=== PATIENT | male | born 2005 | race Caucasian/White ===

== ENCOUNTER 2024-08-05 03:13 | Emergency (ER) | payer SELFPAY ==
[2024-08-05 03:17] VITALS: BP 134/70; PULSE 73; TEMP 36.4; O2SAT 98; BMI 28.7
[2024-08-05 03:25] VITALS: O2SAT 97
--- NOTE | 2024-08-05 03:36 | ED_ITS ---
HPI - Skin/Abscess/Foreign Bdy General Chief complaint: Skin/Abscess/Foreign Body Stated complaint: swollen face Time Seen by Provider: 08/05/24 03:33 Source: patient Mode of arrival: walk-in Limitations: no limitations History of Present Illness HPI narrative: The patient is coming to the ER with a left-sided face swelling that he noted over the last 2 days, that the pain showed all of a sudden 2 days ago in the left side of his face with no trauma or any recent sickness symptoms The patient had no runny nose no cough no sneezing he also had no ear pain and no dental pain Mostly have the pain whenever he is touching that area Related Data Previous Rx's ?Medication ?Instructions ?Recorded amoxicillin 875 mg-potassium 1 tab PO BID #14 tabs 08/05/24 clavulanate 125 mg tablet ibuprofen 600 mg tablet 600 mg PO TID PRN pain #20 tabs 08/05/24 Allergies Allergy/AdvReac Type Severity Reaction Status Date / Time No Known Drug Allergies Allergy Verified 08/05/24 03:23 Review of Systems ROS Status of ROS 10 or more systems reviewed and unremark able except as noted in history and below PFSH PFSH Social History Little interest or pleasure in doing things: not at all Feeling down, depressed, or hopeless: not at all Exam Narrative Exam Narrative: Nurses notes and vital signs reviewed and patient is not hypoxic. General: Well-appearing and in no apparent distress. Skin: Warm, dry, no pallor noted. No rash. Head: Normocephalic, atraumatic. Neck: Supple, non-tender. Eye: Pupils are equal, round and EOMI. No scleral icterus. Ears, Nose, Mouth, and Throat: TM are clear, no nasal mucosal hypertrophy. Oral mucosa is moist, no posterior oropharynx erythema, uvula is mid-line, the patient have a swelling on the anterior of the left auricle in addition down to the angle of the mandible, there is left submandibular gland swelling as well Cardiovascular: Regular Rate and Rhythm without murmur, gallop or rub. Respiratory: No accessory muscle use or respiratory distress. Lungs are clear to auscultation, no wheezing, rales or rhonchi Chest Wall: no tenderness Back: No midline thoracic or lumbar vertebral tenderness. No CVA tenderness Musculoskeletal: normal ROM, no calf or popliteal tenderness, no lower extremity edema/swelling GI: Abdomen is soft, non-distended. Normal bowel sounds. No masses appreciated. No tenderness to palpation. No rebound, guarding, or rigidity noted. Neurological: A&O x4. No cranial nerve dysfunction observed. No truncal ataxia. Moves all extremities. Sensation intact. Psychiatric: Cooperative and interactive. Normal mood and affect. Constitutional Vital Signs, click to edit/add: Last Vital Signs Temp 97.5 F L 08/05/24 03:17 Pulse 73 08/05/24 03:17 Resp 18 08/05/24 03:17 BP 134/70 08/05/24 03:17 Pulse Ox 97 08/05/24 03:25 O2 Del Method Room Air 08/05/24 03:25 Course Vital Signs Vital signs: Vital Signs Temperature 97.5 F L 08/05/24 03:17 Pulse Rate 73 08/05/24 03:17 Respiratory Rate 18 08/05/24 03:17 Blood Pressure 134/70 08/05/24 03:17 Pulse Oximetry 98 08/05/24 03:17 Oxygen Delivery Method Room Air 08/05/24 03:17 Temperature 97.5 F L 08/05/24 03:17 Pulse Rate 73 08/05/24 03:17 Respiratory Rate 18 08/05/24 03:17 Blood Pressure 134/70 08/05/24 03:17 Pulse Oximetry 97 08/05/24 03:25 Oxygen Delivery Method Room Air 08/05/24 03:25 MDM - Skin/Abscess/Foreign Bdy MDM Narrative Medical decision making narrative: Right now the patient presentation is mostly secondary to possible parotitis although submandibular LN would be also the reason Although the patient does not have any dental infection signs with a dental exam showing with hygiene The patient left ear examination was benign as well Right now the patient was treated for possible parotitis with the ibuprofen high-dose in addition to Augmentin The patient does not have any difficulty swallowing or breathing right now but he was instructed in case of any increasing swelling or his symptoms he is to come back to the ER Otherwise the patient have to follow-up with his primary care doctor within few days The patient is to follow up with primary care physician in next 2-3 days or to return to the emergency department should any of the signs or symptoms worsen or new symptoms develop. The patient agrees with the following Diagnosis and Treatment plan and the patient will be discharged home. Discharge Plan Discharge Chief Complaint: Skin/Abscess/Foreign Body Clinical Impression: Acute parotitis Patient Disposition: Home, Self-Care Time of Disposition Decision: 03:34 Condition: Good Prescriptions / Home Meds: New amoxicillin-pot clavulanate 875-125 mg tablet 1 tab PO BID Qty: 14 0RF ibuprofen 600 mg tablet 600 mg PO TID PRN (Reason: pain) Qty: 20 0RF Print Language: Bolivian Instructions: Parotid Duct Obstruction (ED), Sialoadenitis (ED) Referrals: LAURY COWAN [Primary Care Provider] - 1 week
[2024-08-05] MEDS: KETOROLAC TROMETHAMINE 60 MG/2 ML VIAL IM (04:00)
[2024-08-05] MEDS: AMOXICILLIN/POT CLAV 875-125 MG TABLET 1 TAB PO (04:00)
== END 2024-08-05 04:06 | disposition home or self-care (01) ==
PROVIDERS: Emergency Provider Emergency Medicine; PCP Nurse Practitioner Family
DX: K11.21 Acute sialoadenitis (principal)
CPT/HCPCS: 96372; 99284; J1885

== ENCOUNTER 2024-10-29 15:25 | Emergency (ER) | payer OTHER, SELFPAY ==
[2024-10-29 15:28] VITALS: BP 147/84; PULSE 76; TEMP 36.6; O2SAT 96; BMI 28.7
--- NOTE | 2024-10-29 15:36 | ED.GENADUL1 ---
HPI HPI - General Adult General Chief complaint: Nausea/Vomiting/Diarrhea Stated complaint: MOUTH SORES, VOMITING Time Seen by Provider: 10/29/24 15:28 Source: patient Mode of arrival: walk-in Limitations: no limitations History of Present Illness HPI narrative: 19-year-old male presents for sores in his mouth as well as nausea vomiting and diarrhea. This has been present for 3 days. He states his girlfriend had a sore in her mouth a week or 2 ago. No cough or shortness of breath. Related Data Previous Rx's ?Medication ?Instructions ?Recorded ondansetron 4 mg disintegrating 4 mg PO Q6H PRN nausea and 10/29/24 tablet vomiting #20 tabs Allergies Allergy/AdvReac Type Severity Reaction Status Date / Time No Known Drug Allergies Allergy Verified 10/29/24 15:28 Opioid HPI Opioid Management Most Recent Opioid Data: No Data to Display Review of Systems ROS Narrative A ten point review of systems is negative except as noted above. PFSH PFSH Social History Little interest or pleasure in doing things: not at all Feeling down, depressed, or hopeless: not at all Exam Narrative Exam Narrative: Nurses note and vital signs reviewed and patient is not hypoxic. General: The patient appears well and in no apparent distress. Patient is resting comfortably on cart. Skin: Warm, dry, no pallor noted. There is no rash noted. Head: Normocephalic, atraumatic Eye: Normal conjunctiva, no drainage Ears, Nose, Mouth, and Throat: oral mucosa is moist. Nares patent. He has several sores on the lower lip and on the tongue. No white plaques are present. Cardiovascular: Regular Rate and Rhythm Respiratory: Patient is in no distress, no accessory muscle use, lungs are clear to auscultation, no wheezing, rales or rhonchi Back: non-tender GI: Soft and nontender Musculoskeletal: The patient has no evidence of calf tenderness, no pitting edema, symmetrical pulses noted bilaterally Neurological: A&O, normal speech Psychiatric: Cooperative Constitutional Vital Signs, click to edit/add: Last Vital Signs Temp 97.8 F 10/29/24 15:28 Pulse 76 10/29/24 15:28 Resp 20 10/29/24 15:28 BP 147/84 H 10/29/24 15:28 Pulse Ox 96 10/29/24 15:28 O2 Del Method Room Air 10/29/24 15:28 Course Vital Signs Vital signs: Vital Signs Temperature 97.8 F 10/29/24 15:28 Pulse Rate 76 10/29/24 15:28 Respiratory Rate 20 10/29/24 15:28 Blood Pressure 147/84 H 10/29/24 15:28 Pulse Oximetry 96 10/29/24 15:28 Oxygen Delivery Method Room Air 10/29/24 15:28 Temperature 97.8 F 10/29/24 15:28 Pulse Rate 76 10/29/24 15:28 Respiratory Rate 20 10/29/24 15:28 Blood Pressure 147/84 H 10/29/24 15:28 Pulse Oximetry 96 10/29/24 15:28 Oxygen Delivery Method Room Air 10/29/24 15:28 Medical Decision Making MDM Narrative Medical decision making narrative: Blood work is unremarkable. He was given IV fluids as well as a prescription for MDX solution and Zofran. BMBX solution was handwritten. Treatment diagnosis and follow-up were discussed with the patient and his mother. Differential Diagnosis Differential Diagnosis: Viral illness, dehydration Lab Data Lab results reviewed: Yes I reviewed the patient's lab results Labs: Lab Results 10/29/24 Range/Units 15:45 WBC 7.6 (4.0-11.0) 10^3/uL RBC 4.87 (4.70-6.10) 10^6/uL Hgb 14.5 (14.0-18.0) g/dL Hct 42.8 (42.0-54.0) % MCV 87.9 (80.0-94.0) fL MCH 29.8 (25.9-34.0) pg MCHC 33.9 (29.9-35.2) g/dL RDW 12.4 (11.0-15.0) % Plt Count 200 (150-450) 10^3/uL MPV 10.1 (9.5-13.5) fL Seg Neuts % (Manual) 53.0 (43.0-75.0) Lymphocytes % (Manual) 28.0 (20.5-60.0) % Monocytes % (Manual) 18.0 H (1.7-12.0) % Eosinophils % (Manual) 1.0 (0.9-7.0) % Basophils % (Manual) 0.0 L (0.2-2.0) % Neutrophils # (Manual) 4.02 (1.4-6.5) 10^3/uL Lymphocytes # (Manual) 2.12 (1.20-3.80) 10^3/uL Monocytes # (Manual) 1.36 H (0.30-0.80) 10^3/uL Eosinophils # (Manual) 0.07 (0.00-0.70) 10^3/uL Basophils # (Manual) 0.00 (0.00-0.10) 10^3/uL Sodium 138 (136-145) mmol/L Potassium 3.9 (3.5-5.1) mmol/L Chloride 100 (98-107) mmol/L Carbon Dioxide 27.0 (21.0-32.0) mmol/L Anion Gap 14.9 BUN 9.0 (7.0-18.0) mg/dL Creatinine 1.23 (0.70-1.30) mg/dL Est GFR ( Amer) >60 (>=60 mL/min/1.73m^2) Est GFR (Non-Af Amer) >60 (>=60 mL/min/1.73m^2) BUN/Creatinine Ratio 7.3 Glucose 93 (74-106) mg/dL Calcium 9.5 (8.5-10.1) mg/dL Discharge Plan Discharge Chief Complaint: Nausea/Vomiting/Diarrhea Clinical Impression: Viral stomatitis, Viral illness Patient Disposition: Home, Self-Care Time of Disposition Decision: 16:28 Condition: Good Mode of Transportation: Private Vehicle Prescriptions / Home Meds: New ondansetron 4 mg tablet,disintegrating 4 mg PO Q6H PRN (Reason: nausea and vomiting) Qty: 20 0RF Print Language: Ecuadorean Instructions: Viral Syndrome (ED), Oral Mucositis (ED) Referrals: LAURY COWAN [Primary Care Provider] - 1 week
[2024-10-29 15:56] LABS: Hematocrit 42.8 % (42.0-54.0); Hemoglobin 14.5 g/dL (14.0-18.0); Mean Corpuscular HGB Conc 33.9 g/dL (29.9-35.2); Mean Corpuscular Hemoglobin 29.8 pg (25.9-34.0); Mean Corpuscular Volume 87.9 fL (80.0-94.0); Mean Platelet Volume 10.1 fL (9.5-13.5); Platelet Count 200 10^3/uL (150-450); Red Blood Count 4.87 10^6/uL (4.70-6.10); Red Cell Distribution Width 12.4 % (11.0-15.0); White Blood Count 7.6 10^3/uL (4.0-11.0)
[2024-10-29 16:02] LABS: Anion Gap 14.9; BUN Creatinine Ratio 7.3; Calcium 9.5 mg/dL (8.5-10.1); Chloride 100 mmol/L (98-107); Estimated GFR (African America >60 (>=60 mL/min/1.73m^2); Estimated GFR (Non-African Ame >60 (>=60 mL/min/1.73m^2); Glucose 93 mg/dL (74-106); Potassium 3.9 mmol/L (3.5-5.1); Sodium 138 mmol/L (136-145)
[2024-10-29 16:15] LABS: Segmented Neut Absolute Manual 4.02 10^3/uL (1.4-6.5)
[2024-10-29 16:16] LABS: Eosinophils Absolute Manual 0.07 10^3/uL (0.00-0.70); Lymphocytes Absolute Manual 2.12 10^3/uL (1.20-3.80); Monocytes Absolute Manual 1.36 10^3/uL (0.30-0.80)
[2024-10-29] MEDS: 0.9 % SODIUM CHLORIDE 1,000 ML 1000 ML IV (16:18)
[2024-10-29] MEDS: ONDANSETRON PF 4 MG/2 ML VIAL IV (16:18)
== END 2024-10-29 17:20 | disposition home or self-care (01) ==
PROVIDERS: Emergency Provider Emergency Medicine; PCP Nurse Practitioner Family
DX: K12.1 Other forms of stomatitis (principal); B34.9 Viral infection, unspecified; R11.2 Nausea with vomiting, unspecified
CPT/HCPCS: 36415; 80048; 85007; 85027; 96361; 96374; 99285; J2405

== ENCOUNTER 2025-02-19 20:25 | Emergency (ER) | payer OTHER, SELFPAY ==
--- OUTSIDE RECORDS SUMMARY | 2024-10-30 05:00 | XMS_ITS ---
Author Organization The [facility] in [place] Address [address] [place] [address] Care Team Providers Care Reliability Manager Name Role Phone Cassandra Khan Primary Care Provider [phone] REASON FOR VISIT norovirus Encounters Encounter Location Date Provider Diagnosis [place] [address] [place] [address] 10/30/2024 Cassandra Khan Plan Of Treatment No Information Progress Notes * PAT Ernesto PonceDOB: 3 (19 yo M)Acc No.[id number]:10/30/2024 UNLOCKED PROGRESS NOTE Progress Note Patient: Ernesto EMERY Provider: Amaury Khan CNP (TTC) :2005 A ge:19 Y S ex:Male Date:10/30/2024 Address:[address] [place], [place] [id number] Subjective: * Chief Complaints: * 1 . Norovirus. * Medical History: Objective: * Vitals: Assessment: Plan: * Treatment: * * Electronic signature of Barbara Rodriguez NP, AIR QUALITY INSTRUMENT SPECIALIST.LINING [id number] on 02/19/2025 at 08:31 PM EDT Sign off status: Pending Visit Status: N /S N/C (No Show/No Charge) * Provider: Amaury Khan CNP (TTC) Date: 10/30/2024 Generated for Printi ng/Faxing/eTransmitting on: 02/19/2025 08:31 PM EDT
[2025-02-19 20:27] VITALS: BP 137/93; PULSE 78; TEMP 36.8; O2SAT 98; BMI 28.7
--- OUTSIDE RECORDS SUMMARY | 2025-02-19 20:31 | XMS_ITS | Clinical Summary ---
Author Organization [facility] Address [address] [place] [address] Care Team Providers Care Production Gear Cutter Name Role Phone Unavailable Primary Care Provider Unavailabl e Allergies No known active allergies Medications ibuprofen (MOTRIN) 600 mg tabletIndication s:Acute bilateral low back pain without sciatica Take 600 mg by mouth every 6 hours as needed. Active Active Problems Problem Noted Date Diagnosed Date Acute bilateral low back pain without sciatica 0 05/17/2017 Social History Tobacco Use Types Packs/Day Years Used Date Smoking Tobacco: Never Smokeless Tobacco: Never Area Deprivation Index Answer Date Erick rded National Score (1-100), lower number is lower ri sk Not on file 07/31/2020 State Score (1-10), lower number is lower risk N ot on file 07/31/2020 Data from: https://www.neighborhoodatlas.medicine.[facility]/. Last address used for calculation Not on file 07/31/2020 Sex and Gender Information Value Date Recorded Sex Assigned at Not on file Legal Sex Male 6:50 PM EDT Gender Identity Not on file Sexual Orientation Not on file Last Filed Vital Signs Vital Sign Reading Time Taken Comments Blood Pressure - - Pulse - - Temperature - - Respiratory Rate - - Oxygen Saturation - - Inhaled Oxygen Concentration - - Weight 90.7 kg (200 lb) 11/24/2018 9:17 AM EDT Height 177.8 cm (5' 10 ) 11/24/2018 9:17 AM EDT Body Mass Index 28.7 11/24/2018 9:17 AM EDT Plan of Treatment Health Maintenance Due Date Last Done Comments Peds To Adult Transition Initial Discussion 2015 Peds To Adult Transition Annual Assessment 2017 HPV Vaccine (1 - Male 3-dose series) 2018 Meningococcal B Vaccine (1 of 2 - Standard) 2019 Anxiety Screening 2021 Depression Screening 2021 HIV Screening 2021 Hepatitis C Screening 2021 DTaP,Tdap,Td Vaccine (1 - Tdap) 2022 Hepatitis B Vaccine (1 of 3 - 19+ 3-dose series) 07/24 Covid-19 Vaccine (1 - 2023- season) 2024 Influenza Vaccine (#1) 2025 Insurance
--- NOTE | 2025-02-19 20:32 | XR_ITS ---
The [address] [address] Patient Name: NINO STEWART MRN: [id number] date: 2005 Sex: M Assigned Patient Location: ER Current Patient Location: ED.MAIN Accession/Order Number: [id number] Exam Date: 02/19/2025 21:14 Report Date: 02/19/2025 21:15 At the request of: ESTEFANY WHITTEN NP Procedure: XR ankle LT min 3V 3 views left ankle plain film COMPARISON: None HISTORY: Left medial ankle pain. Injury ACUTE FINDINGS: None DEGENERATIVE CHANGE: Unremarkable SOFT TISSUE FINDINGS: Unremarkable JOINT EFFUSION: None POSTOP CHANGES: None BONE MINERALIZATION: Adequate XR/XR ankle LT min 3V IMPRESSION: No acute findings. Impression dictated by: Tim Marmolejo M.D. 02/19/2025 9:15 PM Dictation Location: [place] [address] Electronically authenticated by: [id number] Y Date: 02/19/2025 21:15
--- OUTSIDE RECORDS SUMMARY | 2025-02-19 20:32 | XMS_ITS | Patient Health Record ---
Author Organization The [facility] in [place] Address [address] [place] [address] Care Team Providers Care Triage Register Nurse Name Role Phone Cassandra Khan Primary Care Provider [phone] Results Component Value Reference Range Notes CBC AUTO DIFF Reviewed date:10/30/2024 09:15:45 AM Interpretation: Performing Lab: Notes/Report: [facility] , White Blood Count 7.6 4.0-11.0 10 3/uL Red Blood Count 4.87 4.70-6.10 10 6/uL Hemoglobin 14.5 14.0-18.0 g/dL Hematocrit 42.8 42.0-54.0 % Mean Corpuscular Volume 87.9 80.0-94.0 fL Mean Corpuscular Hemoglobin 29.8 25.9-34.0 pg Mean Corpuscular HGB Conc 33.9 29.9-35.2 g/dL Red Cell Distribution Width 12.4 11.0-15.0 % Platelet Count 200 150-450 10 3/uL Mean Platelet Volume 10.1 9.5-13.5 fL Performing Lab: see note ML - [facility] LB PROF CHEM 8 (BAS METB) Reviewed date:10/30/2024 09:15:45 AM Interpretation: Performing Lab: Notes/Report: [facility] , Sodium 138 136-145 mmol/L Potassium 3.9 3.5-5.1 mmol/L Chloride 100 98-107 mmol/L Carbon Dioxide 27.0 21.0-32.0 mmol/L Anion Gap 14.9 Glucose 93 74-106 mg/dL Blood Urea Nitrogen 9.0 7.0-18.0 mg/dL Creatinine 1.23 0.70-1.30 mg/dL Estimated GFR ( Fouzia >60 >=60 mL/mi n/1.73m 2 Estimated GFR (Non- Kimberlee >60 >=60 mL/mi n/1.73m 2 BUN Creatinine Ratio 7.3 Calcium 9.5 8.5-10.1 mg/dL Performing Lab: see note - [facility] LB Manual Differential Reviewed date:10/30/2024 09:15:45 AM Interpretation: Performing Lab: Notes/Report: [facility] , Segmented Neutrophils % Manual 53.0 43.0-75.0 Lymphocytes Percent Manual 28.0 20.5-60.0 % Monocytes Percent Manual 18.0 1.7-12.0 % Eosinophils Percent Manual 1.0 0.9-7.0 % Basophils Percent Manual 0.0 0.2-2.0 % Segmented Neut Absolute Manual 4.02 1.4-6.5 10 3/uL Lymphocytes Absolute Manual 2.12 1.20-3.80 10 3/uL Monocytes Absolute Manual 1.36 0.30-0.80 10 3/ uL Eosinophils Absolute Manual 0.07 0.00-0.70 10 3/uL Basophils Abs Manual 0.00 0.00-0.10 10 3/uL Performing Lab: see note - [facility] LB Reason For Referral No Information Plan Of Treatment No Information
--- NOTE | 2025-02-19 20:33 | ED.GENADUL1 ---
HPI HPI - General Adult General Chief complaint: Extremity Injury, Lower Stated complaint: LOWER EXTREMITY PAIN/INJURY Time Seen by Provider: 02/19/25 20:29 Source: patient Mode of arrival: Wheelchair Limitations: no limitations History of Present Illness HPI narrative: The patient is a 19-year-old male who presents to the emergency department today for evaluation concerns for left ankle pain. He endorses he was stepping off of his truck and subsequently hit the medial malleolar region of his left ankle. Reports since that he has had pain mostly with ambulation. Chills, weakness, loss of movement to the affected extremity. Did not take any analgesic medication prior to evaluation in the ER. Related Data Previous Rx's ?Medication ?Instructions ?Recorded ondansetron 4 mg disintegrating 4 mg PO Q6H PRN nausea and 10/29/24 tablet vomiting #20 tabs Allergies Allergy/AdvReac Type Severity Reaction Status Date / Time No Known Drug Allergies Allergy Verified 02/19/25 20:31 Opioid HPI Opioid Management Most Recent Opioid Data: Last Pain Scale 5 02/19/25, 20:43 Last ED Pain Assessment 02/19/25, 20:37 Last MAR Pain Assessment 02/19/25, 20:43 Review of Systems ROS Status of ROS 10 or more systems reviewed and unremarkable except as noted in history and below PFSH PFSH Social History Little interest or pleasure in doing things: not at all Feeling down, depressed, or hopeless: not at all Exam Narrative Exam Narrative: Constituational: Awake/ alert, no apparent distress, well hydrated HENMT: normocephalic, external ears normal, moist oral mucous membranes and oropharynx normal Eyes: EOMI and conjunctivae normal Neck: ROM intact Chest: inspection of chest normal Respiratory: Normal respiratory effort MSK: + mild discomfort over medial malleolar region of L ankle minimal surrounding edema, no ecchymosis, crepitus, deformity, R foot/lower leg stable, +NVI Skin: no rashes or petechiae Neuro: no focal deficits Psych: mental status grossly normal Constitutional Vital Signs, click to edit/add: Last Vital Signs Temp 98.2 F 02/19/25 20:27 Pulse 78 02/19/25 20:27 Resp 16 02/19/25 20:27 BP 137/93 H 02/19/25 20:27 Pulse Ox 98 02/19/25 20:27 O2 Del Method Room Air 02/19/25 20:27 Course Vital Signs Vital signs: Vital Signs Temperature 98.2 F 02/19/25 20:27 Pulse Rate 78 02/19/25 20:27 Respiratory Rate 16 02/19/25 20:27 Blood Pressure 137/93 H 02/19/25 20:27 Pulse Oximetry 98 02/19/25 20:27 Oxygen Delivery Method Room Air 02/19/25 20:27 Temperature 98.2 F 02/19/25 20:27 Pulse Rate 78 02/19/25 20:27 Respiratory Rate 16 02/19/25 20:27 Blood Pressure 137/93 H 02/19/25 20:27 Pulse Oximetry 98 02/19/25 20:27 Oxygen Delivery Method Room Air 02/19/25 20:27 Medical Decision Making MDM Narrative Medical decision making narrative: Patient is a well-appearing 19-year-old male who presented to the emergency department today for evaluation concerns for injury to the medial aspect of his left ankle. Initial examination and vital signs without any concerning neurovascular or motor findings on exam. Overall injury seem mild on exam. X-ray imaging without critical findings to the left ankle. Patient did receive supportive measures of ibuprofen and on reevaluation he reported some improvement in pain. Discussed this with the patient including recommendations for supportive care. Pablo wrap applied for stabilization of injury. Advised on follow-up with patient's primary care provider for reevaluation. Discussed signs and symptoms of any worsening condition and when to consider reevaluation by the emergency department. Patient verbalized an understanding of this and is agreeable with the plan to be discharged home. Medical Records Medical records reviewed: Yes I reviewed the patient's medical records Imaging Data XR Left ankle: Radiologist's impression: ITS Impressions Ankle X-Ray 02/19/25 20:32 IMPRESSION: No acute findings. Impression dictated by: Tim Marmolejo M.D. 02/19/2025 9:15 PM Dictation Location: [facility] Electronically authenticated by: [id number] Y Date: 02/19/2025 21:15 Discharge Plan Discharge Chief Complaint: Extremity Injury, Lower Clinical Impression: Ankle injury Patient Disposition: Home, Self-Care Condition: Good Mode of Transportation: Private Vehicle Prescriptions / Home Meds: No Action ondansetron 4 mg tablet,disintegrating 4 mg PO Q6H PRN (Reason: nausea and vomiting) Qty: 20 0RF Print Language: Beninese Instructions: P.R.I.C.E. Treatment (ED) Additional Instructions: Chest, ice, may take Tylenol and ibuprofen as needed for any pain. Wear Pablo wrap for support. Follow-up with your primary care provider for reevaluation as needed Referrals: LAURY COWAN [Primary Care Provider, Family Practice] - 1 week Discharge Date/Time: 02/19/25 22:09
--- OUTSIDE RECORDS SUMMARY | 2025-02-19 20:33 | XMS_ITS | CCD ---
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 distribution width (RBC) [Ratio] 12.4 % Normal 11.0-15.0 [facility] Comment on above: Performed By: #### C BC ####[facility] [address] [place], [place] [address]Dr. Cathrynyvetet Pillai Hematocrit (Bld) [Volume fraction] 40.8 % Critically low 42.0-54.0 [facility] Comment on above: Performed By: #### C BC ####[facility] [address] [place], [place] [address]Dr. Santino Pillai Hemoglobin (Bld) [Mass/Vol] 13.9 g/dL Critically low 14.0-18.0 [facility] Comment on above: Performed By: #### C BC ####[facility] [address] [place], [place] [address]Dr. Santino Pillai IG # 0.03 10e3/ul Normal 0.00-0.03 [facility] Comment on above: Performed By: #### C BC ####[facility] [address] [place], [place] [address]Dr. Cathrynyvette Pillai IG % 0.3 % Normal 0.0-0.5 [facility] Comment on above: Performed By: #### C BC ####[facility] [address] [place], [place] [address]DrCandie Pillai LYMPH # 2.6 103/ul Normal 1.2-3.8 [facility] Comment on above: Performed By: #### C BC ####[facility] [address] [id number]. Santino Pillai Lymphocytes/100 WBC (Bld) 26.9 % Normal 20.5-60.0 [facility] Comment on above: Performed By: #### C BC ####[facility] [address] [address] [id number]. Santino Pillai MANUAL DIFF REQ NO Normal [facility] Comment on above: Performed By: #### C BC ####[facility] [address] [address] [id number]. Santino Pillai MCH (RBC) [Entitic mass] 29.1 pg Normal 25.9-34.0 [facility] Comment on above: Performed By: #### C BC ####[facility] [address] [address] [id number]. Santino Pillai MCHC (RBC) [Mass/Vol] 34.1 g/dL Normal 29.9-35.2 [facility] Comment on above: Performed By: #### C BC ####[facility] [address] [id number]. Santino Pillai MCV (RBC) [Entitic vol] 85.4 fL Normal 80.0-94.0 [facility] Comment on above: Performed By: #### C BC ####[facility] [address] [id number]. Santnio Pillai MONO # 1.1 103/ul Critically high 0.3-0.8 [facility] Comment on above: Performed By: #### C BC ####[facility] [address] [id number] Pillai Monocytes/100 WBC (Bld) 11.7 % Normal 1.7-12.0 [facility] Comment on above: Performed By: #### C BC ####[facility] [address] [id number] Pillai NEUT # 5.7 103/ul Normal 1.4-6.5 [facility] Comment on above: Performed By: #### C BC ####[facility] [address] [place] [phone]. Santino Pillai Neutrophils/100 WBC (Bld) 59.5 % Normal 43.0-75.0 [facility] Comment on above: Performed By: #### C BC ####[facility] [address] [phone]. Santino Pillai Platelet mean volume (Bld) [Entitic vol] 10.2 fL Normal 9.5-13.5 [facility] Comment on above: Performed By: #### C BC ####[facility] [address] [phone]. Santino Pillai PLT 242 103/ul Normal 150-450 [facility] Comment on above: Performed By: #### C BC ####[facility] [address] [address]Dr. Santino Pillai RBC 4.78 106/ul Normal 4.70-6.10 [facility] Comment on above: Performed By: #### C BC ####[facility] [address] [place] [phone]. Santino Pillai WBC 9.6 103/ul Normal 4.0-11.0 [facility] Comment on above: Performed By: #### C BC ####[facility] [address] [place] [phone]. Santino Pillai CULTURE URINEon 03-25-2022 CULTURE URINE Culture Observations : NO GROWTH. Normal [facility] Comment on above: Performed By: #### U RCX #### [facility] [address] [address] [address] Santino Pillai ER URINE PROFILEon 2 Bilirubin Ql (U) Negative Normal NEGATIVE The [facility] Comment on above: Performed By: #### VIANCA SINGLETON #### [facility] [address] [address] [address] Santino Pillai Clarity (U) CLEAR Normal CLEAR [facility] Comment on above: Performed By: #### VIANCA SINGLETON #### [facility] [address] [place] [address] Dr. Santino Pillai Color (U) LT. YELLOW Normal YELLOW [facility] Comment on above: Performed By: #### Edie VENEGAS UMICRO #### [facility] [address] [place] [address] Dr. Santino MAZARIEGOS A micrscopic examination will be performed if indicated. Normal [facility] Comment on above: Performed By: #### Edie VENEGAS UMICRO #### [facility] [address] [place] [address] Dr. Santino Pillai Glucose Ql (U) Negative Normal NEGATIVE [facility] Comment on above: Performed By: #### Edie VENEGAS UMICRO #### [facility] [address] [place] [address] Dr. Santino Pillai Hemoglobin Ql (U) Negative Normal NEGATIVE The [facility] Comment on above: Performed By: #### SARANYA SINGLETONICRO #### [facility] [address] [place] [address] Dr. Santino Pillai Ketones Ql (U) Negative Normal NEGATIVE [facility] Comment on above: Performed By: #### SARANYA SINGLETONICRO #### [facility] [address] [place] [address] Dr. Santino Pillai LEUKOCYTES TRACE Abnormal NEGATIVE [facility] Comment on above: Performed By: #### Edie VENEGAS UMICRO #### [facility] [address] [place] [address] Dr. Santino Pillai Nitrite Ql (U) Negative Normal NEGATIVE [facility] Comment on above: Performed By: #### Edie VENEGAS UMICRO #### [facility] [address] [place] [address] Dr. Santino Pillai pH (U) 6.0 [pH] Normal 5-9 [facility] Comment on above: Performed By: #### Edie VENEGAS UMICRO #### [facility] [address] [place] [address] Dr. Santino Pillai SPEC GRAVITY 1.025 Normal 1.005-<=1.025 [facility] Comment on above: Performed By: #### BROOKLYN SINGLETONRO #### [facility] [address] [place] [address] Dr. Santino Pillai UA PROTEIN Negative Normal NEGATIVE/ TRACE [facility] Comment on above: Performed By: #### BROOKLYN SINGLETONRO #### [facility] [address] [place] [address] Dr. Santino Pillai UR MICRO IND INDICATED Normal [facility] Comment on above: Performed By: #### BROOKLYN SINGLETONRO #### [facility] [address] [place] [address] Dr. Santino Pillai Urobilinogen Qn (U) 0.2 {Tim'U}/dL Normal 0.2 - 1. 0 [facility] Comment on above: Performed By: #### BROOKLYN SINGLETONRO #### [facility] [address] [place] [address] Dr. Santino Pillai PROF 14(COMP METB)on 022 Albumin [Mass/Vol] 4.5 g/dL Normal 3.4-5.0 [facility] Comment on above: Performed By: #### C MP #### [facility] [address] [place] [address] Dr. Santino Pillai Albumin/Globulin [Mass ratio] 1.4 {ratio} Normal [facility] Comment on above: Performed By: #### C MP #### [facility] [address] [place] [address] Dr. Santino Pillai ALP [Catalytic activity/Vol] 46 U/L Normal 46-116 [facility] Comment on above: Performed By: #### C MP #### [facility] [address] [place] [address] Dr. Santino Pillai ALT [Catalytic activity/Vol] 21 U/L Normal 16-63 [facility] Comment on above: Performed By: #### C MP #### [facility] [address] [place] [address] Dr. Santino Pillai Anion gap [Moles/Vol] 16.4 mmol/L Normal [facility] Comment on above: Performed By: #### C MP #### [facility] [address] [address] [address] aSntino Pillai AST [Catalytic activity/Vol] 16 U/L Normal 15-37 [facility] Comment on above: Performed By: #### C MP #### [facility] [address] [address] [address] Santino Pillai Bilirubin [Mass/Vol] 0.6 mg/dL Normal 0.2-1.0 [facility] Comment on above: Performed By: #### C MP #### [facility] [address] [address] [address] Santino Pillai Calcium [Mass/Vol] 9.0 mg/dL Normal 8.5-10.1 [facility] Comment on above: Performed By: #### C MP #### [facility] [address] [address] [address] Santino Pillai Chloride [Moles/Vol] 100 mmol/L Normal 98-107 [facility] Comment on above: Performed By: #### C MP #### [facility] [address] [address] [address] Santino Pillai CO2 [Moles/Vol] 24.5 mmol/L Normal 21.0-32.0 [facility] Comment on above: Performed By: #### C MP #### [facility] [address] [address] [address] Santino Pillai Creatinine [Mass/Vol] 1.13 mg/dL Normal 0.70-1.30 [facility] Comment on above: Performed By: #### C MP #### [facility] [address] [address] [address] Santino Pillai EGFR-AF [place] >60 Normal >=60 [facility] Comment on above: Performed By: #### C MP #### [facility] [address] [address] [address] Santino Pillai EGFR-NON AF [place] >60 Normal >=60 [facility] Comment on above: Performed By: #### C MP #### [facility] [address] [address] [address] Santino Pillai Globulin (S) [Mass/Vol] 3.3 g/dL Normal [facility] Comment on above: Performed By: #### C MP #### [facility] [address] [address] [address] Santino Pillai Glucose [Mass/Vol] 111 mg/dL Critically high 74-106 [facility] Comment on above: Performed By: #### C MP #### [facility] [address] [address] [address] Santino Pillai Potassium [Moles/Vol] 3.9 mmol/L Normal 3.5-5.1 [facility] Comment on above: Performed By: #### C MP #### [facility] [address] [address] [address] Santino Pillai Protein [Mass/Vol] 7.8 g/dL Normal 6.4-8.2 [facility] Comment on above: Performed By: #### C MP #### [facility] [address] [address] [address] Santino Pillai Sodium [Moles/Vol] 137 mmol/L Normal 136-145 [facility] Comment on above: Performed By: #### C MP #### [facility] [address] [address] [address] Santino Pillai Urea nitrogen [Mass/Vol] 29.0 mg/dL Critically high 6.4-19.3 [facility] Comment on above: Performed By: #### C MP #### [facility] [address] [address] [address] Santino Pillai Urea nitrogen/Creatinine [Mass ratio] 25.7 mg/mg Normal [facility] Comment on above: Performed By: #### C MP #### [facility] [address] [address] [address] Santino Pillai URINE MICROSCOPIC ONLYon BACTERIA SMALL Abnormal NONE SEEN [facility] Comment on above: Performed By: #### VIANCA SINGLETON #### [facility] [address] [place] [address] Dr. Santino Pillai Bacteria identified Cx Nom (U) INDICATED Normal [facility] Comment on above: Performed By: #### Edie VENEGAS UMICRO #### [facility] [address] [place] [address] Dr. Santino Pillai CAST NONE SEEN Normal NONE SEEN [facility] Comment on above: Performed By: #### Edie VENEGAS UMICRO #### [facility] [address] [place] [address] Dr. Santino Pillai Crystals LM Nom (Urine sed) NONE SEEN Normal NONE SEEN [facility] Comment on above: Performed By: #### Edie VENEGAS UMICRO #### [facility] [address] [place] [address] Dr. Santino Pillai Epithelial cells LM Ql (Urine sed) NONE SEEN Normal NONE SEEN /RARE [facility] Comment on above: Performed By: #### Edie VENEGAS UMICRO #### [facility] [address] [place] [address] Dr. Santino Pillai MUCOUS NONE SEEN Normal NONE SEEN [facility] Comment on above: Performed By: #### Edie VENEGAS UMICRO #### [facility] [address] [place] [address] Dr. Santino Pillai RBC 10-20 Abnormal 0-2 [facility] Comment on above: Performed By: #### Edie VENEGAS UMICRO #### [facility] [address] [place] [address] Dr. Santino Pillai WBC 0-2 Abnormal NONE SEEN [facility] Comment on above: Performed By: #### Edie VENEGAS UMICRO #### [facility] [address] [place] [address] Dr. Santino Pillai Covid-19 PCR ([facility])on 02-19 SARS-CoV-2 (COVID-19) RNA YANNI+probe Ql (Unsp spec) Not detected Normal NOT DETECTED [facility] Comment on above: Result Comment: This test is not yet approved or cleared by the [place] FDA. When there are no FDA-approved or cleared tests available, and other criteria are met, FDA can make tests available under an emergency access mechanism called an Emergency Use Authorization (EUA). The EUA for this test is supported by the [place] of Health and Human Service's (HHS's) declaration that circumstances exist to justify the emergency use of in vitro diagnostics for the detection and/or diagnosis of the virus that causes COVID-19. This EUA will remain in effect (meaning this test can be used) for the duration of the COVID-19 declaration justifying emergency of IVDs, unless it is terminated or revoked by FDA (after which the test may no longer be used). When diagnostic testing is negative, the possibility of a false negative should be considered in the context of a patient's recent exposures and the presence of clinical signs and symptoms consistent with SARS-CoV-2. Performed By: #### [facility] #### [facility] [address] [place] [address] Dr. Santino Pillai XR RIBS LT PA [place] XR RIBS LT PA CH IMAGES REVIEWED: XR RIBS LT PA CH COMPARISON: Chest x-ray from yesterday. CLINICAL INDICATION: Left posterior lower rib pain and thoracic back pain after weight lifting. FINDINGS/IMPRESSION: 1. No acute displaced left rib fractures. No radiographic evidence of acute osseous abnormality. 2. No radiographic evidence of acute cardiopulmonary abnormality. Electronically authenticated by: RAJI BELLA Date: 2021-12-15 14:30 Normal [facility] XR CHEST 2 Von 12-14-2021 XR CHEST 2 V EXAMINATION: XR CHES T 2 V HISTORY: Dyspnea COMPARISON: No relevant comparison available. TECHNIQUE: PA and lateral FINDINGS: LUNGS: No significant pulmonary parenchymal abnormalities. VASCULATURE: No increased pulmonary vasculature. PLEURA: No pneumothorax, effusion, or pleural thickening. CARDIAC: No cardiomegaly or cardiac silhouette abnormality. MEDIASTINUM: No visible mass or adenopathy. BONES: No fracture or visible bone lesion. OTHER: Negative. IMPRESSION: No acute disease. Electronically authenticated by: YUNIOR PEREZ Date: 2021-12-14 17:56 Normal [facility] Cov[facility]-19 PCR [facility]on 08-22 SARS-CoV-2 (COVID-19) RNA YANNI+probe Ql (Unsp spec) Not detected Normal NOT DETECTED [facility] Comment on above: Result Comment: This test is not yet approved or cleared by the [place] FDA. When there are no FDA-approved or cleared tests available, and other criteria are met, FDA can make tests available under an emergency access mechanism called an Emergency Use Authorization (EUA). The EUA for this test is supported by the [place] of Health and Human Service's (HHS's) declaration that circumstances exist to justify the emergency use of in vitro diagnostics for the detection and/or diagnosis of the virus that causes COVID-19. This EUA will remain in effect (meaning this test can be used) for the duration of the COVID-19 declaration justifying emergency of IVDs, unless it is terminated or revoked by FDA (after which the test may no longer be used). When diagnostic testing is negative, the possibility of a false negative should be considered in the context of a patient's recent exposures and the presence of clinical signs and symptoms consistent with SARS-CoV-2. Performed By: #### C VDTB ####[facility] [address] [address]Dr. Santino Pillai CBC AUTO DIFFon 06-29-2021 BASO # 0.0 103/ul Normal 0.0-0.1 [facility] Comment on above: Performed By: #### C BC #### [facility] [address] [place] [address] Dr. Santino Pillai Basophils/100 WBC (Bld) 0.5 % Normal 0.2-2.0 [facility] Comment on above: Performed By: #### C BC #### [facility] [address] [place] [address] Dr. Santino Pillai EO # 0.3 103/ul Normal 0.0-0.7 [facility] Comment on above: Performed By: #### C BC #### [facility] [address] [place] [address] Dr. Santino Pillai Eosinophils/100 WBC (Bld) 4.6 % Normal 0.9-7.0 [facility] Comment on above: Performed By: #### C BC #### [facility] [address] [place] [address] Dr. Santino Pillai Erythrocyte distribution width (RBC) [Ratio] 12.3 % Normal 11.0-15.0 [facility] Comment on above: Performed By: #### C BC #### [facility] [address] [place] [address] Dr. Santino Pillai Hematocrit (Bld) [Volume fraction] 43.7 % Normal 42.0-54.0 [facility] Comment on above: Performed By: #### C BC #### [facility] [address] [place] [address] Dr. Santino Pillai Hemoglobin (Bld) [Mass/Vol] 14.6 g/dL Normal 14.0-18.0 [facility] Comment on above: Performed By: #### C BC #### [facility] [address] [place] [address] Dr. Santino Pillai IG # 0.01 10e3/ul Normal 0.00-0.03 [facility] Comment on above: Performed By: #### C BC #### [facility] [address] [place] [address] Dr. Santino Pillai IG % 0.2 % Normal 0.0-0.5 [facility] Comment on above: Performed By: #### C BC #### [facility] [address] [place] [address] Dr. Santino Pillai LYMPH # 1.8 103/ul Normal 1.2-3.8 [facility] Comment on above: Performed By: #### C BC #### [facility] [address] [place] [address] Dr. Santino Pillai Lymphocytes/100 WBC (Bld) 32.6 % Normal 20.5-60.0 [facility] Comment on above: Performed By: #### C BC #### [facility] [address] [place] [address] Dr. Santino Pillai MANUAL DIFF REQ NO Normal [facility] Comment on above: Performed By: #### C BC #### [facility] [address] [place] [address] Dr. Santino Pillai MCH (RBC) [Entitic mass] 29.7 pg Normal 25.9-34.0 [facility] Comment on above: Performed By: #### C BC #### [facility] [address] [place] [address] Dr. Santino Pillai MCHC (RBC) [Mass/Vol] 33.4 g/dL Normal 29.9-35.2 [facility] Comment on above: Performed By: #### C BC #### [facility] [address] [place] [address] Dr. Santino Pillai MCV (RBC) [Entitic vol] 89.0 fL Normal 76.3-90.1 [facility] Comment on above: Performed By: #### C BC #### [facility] [address] [place] [address] Dr. Santino Pillai MONO # 0.6 103/ul Normal 0.3-0.8 [facility] Comment on above: Performed By: #### C BC #### [facility] [address] [place] [address] Dr. Santino Pillai Monocytes/100 WBC (Bld) 10.7 % Normal 1.7-12.0 [facility] Comment on above: Performed By: #### C BC #### [facility] [address] [place] [address] Dr. Santino Pillai NEUT # 2.8 103/ul Normal 1.4-6.5 [facility] Comment on above: Performed By: #### C BC #### [facility] [address] [place] [address] Dr. Santino Pillai Neutrophils/100 WBC (Bld) 51.4 % Normal 43.0-75.0 [facility] Comment on above: Performed By: #### C BC #### [facility] [address] [place] [address] Dr. Santino Pillai Platelet mean volume (Bld) [Entitic vol] 10.4 fL Normal 9.5-13.5 [facility] Comment on above: Performed By: #### C BC #### [facility] [address] [place] [address] Dr. Santino Pillai PLT 226 103/ul Normal 150-450 [facility] Comment on above: Performed By: #### C BC #### [facility] [address] [address] [address] Santino Pillai RBC 4.91 106/ul Normal 3.30-5.40 [facility] Comment on above: Performed By: #### C BC #### [facility] [address] [address] [address] Santino Pillai WBC 5.5 103/ul Normal 4.0-11.0 [facility] Comment on above: Performed By: #### C BC #### [facility] [address] [address] [address] Santino Pillai CULTURE STOOLon 06-29-2021 CULTURE STOOL Culture Observations : NO GROWTH SALMONELLA, SHIGELLA, YERSINIA, CAMPY, E.COLI 0157, OR STAPH AT 72 HRS Normal [facility] Comment on above: Performed By: #### S TOOLCX ####[facility] [address] [address]Dr. Santino Pillai FREE THYROXINE INDEX T7on FTI 2.37 Normal [facility] Comment on above: Performed By: #### T SH, CMP, T7 #### [facility] [address] [place] [address] Dr. Santino Pillai T3U 32.0 % Normal 23.5-40.5 [facility] Comment on above: Performed By: #### T SH, CMP, T7 #### [facility] [address] [place] [address] Dr. Santino Pillai T4 [Mass/Vol] 7.40 ug/dL Normal 5.53-11.00 [facility] Comment on above: Performed By: #### T SH, CMP, T7 #### [facility] [address] [place] [address] Dr. Santino Pillai IRONon 06-29-2021 Iron [Mass/Vol] 74.0 ug/dL Normal 49.0-181.0 [facility] Comment on above: Performed By: #### I SUREKHA ####[facility] [address] [place], [place] [address]XiDr. Santino Pillai PROF 14(COMP METB)on 021 Albumin [Mass/Vol] 4.2 g/dL Normal 3.5-5.0 [facility] Comment on above: Performed By: #### T SH, CMP, T7 #### [facility] [address] [address] [address] Santino Pillai Albumin/Globulin [Mass ratio] 1.1 {ratio} Normal [facility] Comment on above: Performed By: #### T SH, CMP, T7 #### [facility] [address] [address] [address] Santino Pillai ALP [Catalytic activity/Vol] 56 U/L Critically low 65-260 [facility] Comment on above: Performed By: #### T SH, CMP, T7 #### [facility] [address] [address] [address] Santino Pillai ALT [Catalytic activity/Vol] 21 U/L Normal 21-72 [facility] Comment on above: Performed By: #### T SH, CMP, T7 #### [facility] [address] [address] [address] Santino Pillai Anion gap [Moles/Vol] 15.8 mmol/L Normal [facility] Comment on above: Performed By: #### T SH, CMP, T7 #### [facility] [address] [address] [address] Santino Pillai AST [Catalytic activity/Vol] 18 U/L Normal 17-59 [facility] Comment on above: Performed By: #### T SH, CMP, T7 #### [facility] [address] [address] [address] Santino Pillai Bilirubin [Mass/Vol] 0.4 mg/dL Normal 0.2-1.3 [facility] Comment on above: Performed By: #### T SH, CMP, T7 #### [facility] [address] [address] [address] Santino Pillai Calcium [Mass/Vol] 9.2 mg/dL Normal 8.4-10.2 [facility] Comment on above: Performed By: #### T SH, CMP, T7 #### [facility] [address] [place] [address] Dr. Santino Pillai Chloride [Moles/Vol] 103 mmol/L Normal 98-107 [facility] Comment on above: Performed By: #### T SH, CMP, T7 #### [facility] [address] [place] [address] Dr. Santino Pillai CO2 [Moles/Vol] 27.4 mmol/L Normal 22.0-30.0 [facility] Comment on above: Performed By: #### T SH, CMP, T7 #### [facility] [address] [place] [address] Dr. Santino Pillai Creatinine [Mass/Vol] 1.02 mg/dL Normal 0.66-1.25 [facility] Comment on above: Performed By: #### T SH, CMP, T7 #### [facility] [address] [place] [address] Dr. Santino Pillai Globulin (S) [Mass/Vol] 3.8 g/dL Normal [facility] Comment on above: Performed By: #### T SH, CMP, T7 #### [facility] [address] [place] [address] Dr. Santino Pillai Glucose [Mass/Vol] 106 mg/dL Normal 74-106 [facility] Comment on above: Performed By: #### T SH, CMP, T7 #### [facility] [address] [place] [address] Dr. Santino Pillai Potassium [Moles/Vol] 4.2 mmol/L Normal 3.4-5.0 [facility] Comment on above: Performed By: #### T SH, CMP, T7 #### [facility] [address] [place] [address] Dr. Santino Pillai Protein [Mass/Vol] 8.0 g/dL Normal 6.1-8.2 [facility] Comment on above: Performed By: #### T SH, CMP, T7 #### [facility] [address] [place] [address] Dr. Santino Pillai Sodium [Moles/Vol] 142 mmol/L Normal 137-145 [facility] Comment on above: Performed By: #### T JULISSA CMP, T7 #### [facility] [address] [place] [address] Dr. Santino Pillai Urea nitrogen [Mass/Vol] 13.0 mg/dL Normal 6.4-19.3 [facility] Comment on above: Performed By: #### T JULISSA CMP, T7 #### [facility] [address] [address] [address] Santino Pillai Urea nitrogen/Creatinine [Mass ratio] 12.7 mg/mg Normal [facility] Comment on above: Performed By: #### T VICKIE COSTA, T7 #### [facility] [address] [place] [address] Dr. Santino Pillai TSHon 06-29-2021 TSH 1.710 uIU/mL Normal 0.430-3.750 [facility] Comment on above: Performed By: #### T VICKIE COSTA, T7 #### [facility] [address] [place] [address] Dr. Santino Pillai TSH RANGE SEE BELOW Normal [facility] Comment on above: Result Comment: <0.3 4 UIU/ml HYPERTHYROID 0.34-5.60 UIU/ml EUTHYROID >5.60 UIU/ml HYPOTHYROID Performed By: #### T JULISSA CMP, T7 #### [facility] [address] [place] [address] Dr. Santino Pillai GI PANEL (PCR)on 06-22-2021 Adenovirus F 40/41 Not detected Normal NOT DETECTED [facility] Comment on above: Performed By: #### G IPANEL ####[facility] [address] [address]Dr. Santino Pillai Astrovirus Not detected Normal NOT DETECTED [facility] Comment on above: Performed By: #### G IPANEL ####[facility] [address] [address]DrCandie Pillai C. Diff toxin A/B Not detected Normal NOT DETECTED [facility] Comment on above: Performed By: #### G IPANEL ####[facility] [address] [address]Dr. Santino Pillai Campylobacter Not detected Normal NOT DETECTED The [facility] Comment on above: Performed By: #### G IPANEL ####[facility] [address] [address]Dr. Santino Pillai Cryptosporidium Not detected Normal NOT DETECTED [facility] Comment on above: Performed By: #### G IPANEL ####[facility] [address] [place], [place] [address]Dr. Santino Pillai Cyclos. Cayetanensis Not detected Normal NOT DETECTED [facility] Comment on above: Performed By: #### G IPANEL ####[facility] [address] [place], [place] [address]Dr. Santino Pillai E. Coli O157 Not Applicable Normal Not Applicable [facility] Comment on above: Performed By: #### G IPANEL ####[facility] [address] [place], [place] [address]Dr. Santino Pillai E. histolytica Not detected Normal NOT DETECTED [facility] Comment on above: Performed By: #### G IPANEL ####[facility] [address] [place], [place] [address]Dr. Santino Pillai EAEC Not detected Normal NOT DETECTED [facility] Comment on above: Performed By: #### G IPANEL ####[facility] [address] [place], [place] [address]Dr. Santino Pillai EIEC Not detected Normal NOT DETECTED [facility] Comment on above: Performed By: #### G IPANEL ####[facility] [address] [place], [place] [address]Dr. Santino Pillai EPEC Not detected Normal NOT DETECTED [facility] Comment on above: Performed By: #### G IPANEL ####[facility] [address] [place], [place] [address]Dr. Santino Pillai ETEC Not detected Normal NOT DETECTED [facility] Comment on above: Performed By: #### G IPANEL ####[facility] [address] [place] [address]Gu[address] Santino Pillai G. Lamblia Not detected Normal NOT DETECTED [facility] Comment on above: Performed By: #### G IPANEL ####[facility] [address] [address]Dr. Santino ANTONANEL CONTROLS PASSED Normal The [facility] Comment on above: Performed By: #### G IPANEL ####[facility] [address] [address]Dr. Santino ANTONNL JAMEE HEADER GI PANEL BACTERIA Normal T [facility] Comment on above: Performed By: #### G IPANEL ####[facility] [address] [place], [place] [address]Dr. Santino TEJADAHD ECOLI GI PANEL DIARRHEAGENIC E.COLI / SHIGELLA Normal [facility] Comment on above: Performed By: #### G IPANEL ####[facility] [address] [place], [place] [address]Dr. Santino TEJADAHD INFO SEE BELOW Normal [facility] Comment on above: Result Comment: EAEC - Enteroaggregative E. Coli EPEC- Enteropathogenic E. Coli ETEC- Enterotoxigenic E. Coli lt/st STEC- Shigella-like toxin-producing E. Coli stx1/stx2 EIEC- Shigella/Enteroinvasive E. Coli Performed By: #### G IPANEL ####[facility] [address] [place], [place] [address]Dr. Santino ANTONNLHD PARASITES GI PANEL PARASITES Normal [facility] Comment on above: Performed By: #### G IPANEL ####[facility] [address] [address]Dr. Santino ANTONNLHD VIRUS GI PANEL VIRUSES Normal [facility] Comment on above: Performed By: #### G IPANEL ####[facility] [address] [place], [place] [address]Dr. Santino Pillai Norovirus GI/GII Not detected Normal NOT DETECTED [facility] Comment on above: Performed By: #### G IPANEL ####[facility] [address] [place], [place] [id number]. Santino Pillai P. Shigelloides Not detected Normal NOT DETECTED [facility] Comment on above: Performed By: #### G IPANEL ####[facility] [address] [place], [place] [address]Dr. Santino Pillai Rotavirus A Not detected Normal NOT DETECTED The [facility] Comment on above: Performed By: #### G IPANEL ####[facility] [address] [place], [place] [address]Dr. Santino Pillai Salmonella Not detected Normal NOT DETECTED [facility] Comment on above: Performed By: #### G IPANEL ####[facility] [address] [place], [place] [address]Dr. Santino Pillai Sapovirus Not detected Normal NOT DETECTED [facility] Comment on above: Performed By: #### G IPANEL ####[facility] [address] [place], [place] [address]Dr. Santino Pillai STEC Not detected Normal NOT DETECTED [facility] Comment on above: Performed By: #### G IPANEL ####[facility] [address] [place], [place] [address]Dr. Santino Pillai Vibrio Not detected Normal NOT DETECTED [facility] Comment on above: Performed By: #### G IPANEL ####[facility] [address] [place], [place] [address]Dr. Santino Pillai Vibrio Cholera Not detected Normal NOT DETECTED [facility] Comment on above: Performed By: #### G IPANEL ####[facility] [address] [place], [place] [address]Dr. Santino Pillai Y. Enterocolitica Not detected Normal NOT DETECTED [facility] Comment on above: Performed By: #### G IPANEL ####[facility] [address] [place], [place] [address]Dr. Santino Pillai Basic Metabolic Panelon 10-20 Calcium [Mass/Vol] 9.4 mg/dL Normal 8.2-10.2 [facility] Comment on above: Performed By: #### C KMB, CBC, CK, BMP, TROP #### [facility] [address] [place] [address] [place] Chloride [Moles/Vol] 100 mmol/L Normal 95-114 [facility] Comment on above: Performed By: #### C KMB, CBC, CK, BMP, TROP #### [facility] [address] CO2 [Moles/Vol] 23.9 mmol/L Normal 22.0-30.0 [facility] Comment on above: Performed By: #### C KMB, CBC, CK, BMP, TROP #### [facility] [address] Creatinine [Mass/Vol] 0.95 mg/dL Normal 0.64-1.27 [facility] Comment on above: Performed By: #### C KMB, CBC, CK, BMP, TROP #### [facility] [address] [place] [address] [place] Creatinine Clr Calc Pharmacy 144.26 Normal [facility] Comment on above: Result Comment: PERF ORMED BY: [place] [address] PATHOLOGIST [employer]PER[employer] KRISTY GARCÍA M.D. Performed By: #### C KMB, CBC, CK, BMP, TROP #### [address] Glucose [Mass/Vol] 103 mg/dL High 70-100 [facility] Comment on above: Result Comment: [facility] Glucose Reference Range is dependent on time and content of last meal. Glucose of more than 200 mg/dL in a nonstressed, ambulatory subject supports the diagnosis of Diabetes Mellitus. ADA recommended reference range Performed By: #### C KMB, CBC, CK, BMP, TROP #### [facility] [address] Potassium [Moles/Vol] 4.1 mmol/L Normal 3.5-5.1 [facility] Comment on above: Performed By: #### C KMB, CBC, CK, BMP, TROP #### [facility] [address] [place] [address] [place] Sodium [Moles/Vol] 133 mmol/L Low 138-145 [facility] Comment on above: Performed By: #### C KMB, CBC, CK, BMP, TROP #### [address] Urea nitrogen [Mass/Vol] 11 mg/dL Normal 9-23 [facility] Comment on above: Performed By: #### C KMB, CBC, CK, BMP, TROP #### [address] Complete Blood Count Auto Di ffon 11-03-2020 Basophils (Bld) [#/Vol] 0.0 10*3/uL Normal 0.0-0.1 [facility] Comment on above: Result Comment: PERF ORMED BY: [place] [address] PATHOLOGIST [employer] SUPERVISOR KRISTY GARCÍA M.D. Performed By: #### C KMB, CBC, CK, BMP, TROP #### [address] Basophils/100 WBC (Bld) 0.5 % Normal . [facility] Comment on above: Performed By: #### C KMB, CBC, CK, BMP, TROP #### [address] Eosinophils (Bld) [#/Vol] 0.1 10*3/uL Normal 0.0-0.7 [facility] Comment on above: Performed By: #### C KMB, CBC, CK, BMP, TROP #### [address] Eosinophils/100 WBC (Bld) 1.8 % Normal . [facility] Comment on above: Performed By: #### C KMB, CBC, CK, BMP, TROP #### [address] Erythrocyte distribution width (RBC) [Ratio] 13.4 % Normal 12.0-14.8 [facility] Comment on above: Performed By: #### C KMB, CBC, CK, BMP, TROP #### [address] Hematocrit (Bld) [Volume fraction] 42.6 % Normal 37.0-49.0 [facility] Comment on above: Performed By: #### C KMB, CBC, CK, BMP, TROP #### [address] Hemoglobin (Bld) [Mass/Vol] 14.4 g/dL Normal 13.0-16.0 [facility] Comment on above: Performed By: #### C KMB, CBC, CK, BMP, TROP #### [address] Lymphocytes (Bld) [#/Vol] 1.3 10*3/uL Normal 1.20-4.8 [facility] Comment on above: Performed By: #### C KMB, CBC, CK, BMP, TROP #### [address] Lymphocytes/100 WBC (Bld) 23.5 % Normal . [facility] Comment on above: Performed By: #### C KMB, CBC, CK, BMP, TROP #### [address] MCH (RBC) [Entitic mass] 30.2 pg Normal 25.0-35.0 [facility] Comment on above: Performed By: #### C KMB, CBC, CK, BMP, TROP #### [address] MCV (RBC) [Entitic vol] 89.1 fL Normal 78-98 [facility] Comment on above: Performed By: #### C KMB, CBC, CK, BMP, TROP #### [address] Mean Corpuscular HGB Conc 33.9 g/dL Normal 31.0-37.0 [facility] Comment on above: Performed By: #### C KMB, CBC, CK, BMP, TROP #### [place] [id number] [place] Monocytes (Bld) [#/Vol] 0.6 10*3/uL Normal 0.1-1.00 [facility] Comment on above: Performed By: #### C KMB, CBC, CK, BMP, TROP #### [facility] [address] [place] [address] Monocytes/100 WBC (Bld) 11.0 % Normal . [facility] Comment on above: Performed By: #### C KMB, CBC, CK, BMP, TROP #### [address] Neutrophils (Bld) [#/Vol] 3.4 10*3/uL Normal 1.2-7.7 [facility] Comment on above: Performed By: #### C KMB, CBC, CK, BMP, TROP #### [address] Neutrophils/100 WBC (Bld) 63.2 % Normal . [facility] Comment on above: Performed By: #### C KMB, CBC, CK, BMP, TROP #### [place] [address] [place] Nucleated RBC/100 WBC (Bld) [Ratio] 0.1 % Normal 0-0.5 [facility] Comment on above: Performed By: #### C KMB, CBC, CK, BMP, TROP #### [address] Platelet mean volume (Bld) [Entitic vol] 9.3 fL Normal 6.6-10.1 [facility] Comment on above: Performed By: #### C KMB, CBC, CK, BMP, TROP #### [place] [address] [place] Platelets (Bld) [#/Vol] 206 10*3/uL Normal 150-450 [facility] Comment on above: Performed By: #### C KMB, CBC, CK, BMP, TROP #### [place] [address] [place] RBC (Bld) [#/Vol] 4.78 10*6/uL Normal 4.50-5.30 [facility] Comment on above: Performed By: #### C KMB, CBC, CK, BMP, TROP #### [address] WBC (Bld) [#/Vol] 5.4 10*3/uL Normal 4.5-13.5 [facility] Comment on above: Performed By: #### C KMB, CBC, CK, BMP, TROP #### [address] Creatine Kinaseon 11-03-2020 CK [Catalytic activity/Vol] 128 U/L Normal 22-269 [facility] Comment on above: Performed By: #### C KMB, CBC, CK, BMP, TROP #### [address] Creatinine Kinase MBon 11-03 CK.MB [Mass/Vol] 1.2 ng/mL Normal 0.6-6.3 [facility] Comment on above: Performed By: #### C KMB, CBC, CK, BMP, TROP #### [address] CKMB Relative Index 0.9 Normal 0.00-2.50 [facility] Comment on above: Performed By: #### C KMB, CBC, CK, BMP, TROP #### [address] ECG 12 lead ECGon 11-03-2020 ECG 12 lead ECG [facility] [place] [address] Electrocardiograph Report Signed Patient: Ernesto Price MR#: [id number] [birth year] : 2005 Acct:[id number] Age/Sex: 15 / M ADM Date: 11/03/20 Loc: ER Room: Type: [facility] ER Attending Dr: Ordering Provider: Jonathan Mercedes APRN Date of Service: 11/03/20 ECG/ECG 12 lead ECG: Chest Pain Copies to: Test Reason : Blood Pressure : 174/070 mmHG Vent. Rate : 079 BPM Atrial Rate : 079 BPM P-R Int : 156 ms QRS Dur : 090 ms QT Int : 360 ms P-R-T Axes : 025 071 016 degrees QTc Int : 412 ms Normal sinus rhythm Normal ECG No previous ECGs available Confirmed by NARCISO MEREDITH MD ([id number]) on 11/03/2020 3:25:18 PM Referred By: Electronically Signed By:NARCISO MEREDITH MD Transcribed By: MUS Dictated By: Narciso Meredith MD 11/03/20 1115 Signed By: 11/03/20 1525 Normal [facility] Troponin I(TnI)on 11-03-2020 Troponin I.cardiac [Mass/Vol] ng/mL Normal 0-0.02 [facility] Comment on above: Result Comment: JAY CT Cut off value > or equal to 0.03 ng/mL in conjunction with clinical conditions of myocardial infarction. (www.escardio.org/guidelines) PERFORMED BY: [place] [address] PATHOLOGIST [employer] SUPERVISOR KRISTY GARCÍA M.D. Performed By: #### C KMB, CBC, CK, BMP, TROP #### [address] XR chest 1V portableon 11-03 XR chest 1V portable [facility] [place] [address] [place] [address] XRay Report Signed Patient: Ernesto Price MR#: [id number] 11 : 2005 Acct:[id number] Age/Sex: 15 / M ADM Date: 11/03/20 Loc: ER Room: Type: [facility] ER Attending Dr: Ordering Provider: Jonathan Mercedes APRN Date of Service: 11/03/20 XR/XR chest 1V portable: Chest Pain Copies to: Jonathan Mercedes APRN Plain film chestsingle view HISTORY:Midsternal chest pain. Shortness of breath. COMPARISON:None FINDINGS: The cardiac, mediastinal and hilar silhouettes are within normal limits. No acute lung process, pleural effusion or pneumothorax identified. Bony structures are intact. XR/XR chest 1V portable IMPRESSION: No acute process. Impression dictated by: Tim Marmolejo M.D.11/03/2020 11:43 AM Dictation Location: [facility]--11 Transcribed By: OLYA 11/03/20 1143 Dictated By: Tim Marmolejo DO 11/03/20 1142 Signed By: 11/03/20 1143 [facility] CNCOon 05-08-2019 CNCO Letter Text Normal [facility] CNOVon 04-27-2019 CNOV Office Visit (INOPIN ) ERNESTO PRICE ([id number]) 1 M Date Time Provider Department 04/27/19 9:15 AM YUNIOR QUIÑONES During your visit today, we recorded the following information about you: Yunior Quiñones MD 04/27/2019 9:58 AM Signed Jesus is 13 years of age and is here in follow-up with an L4 L5 spondylolisthesis. On the first a football he went to hit into a sled and he felt pain in his back and and pain shooting down the posterior aspect of the left leg which went to the knee. He had some tingling in the hamstring area. This persisted. He has discontinued football. He was seen in the emergency department had x-rays and a CT scan. No change identified at that point. Subsequently the tingling and pain have gone away. He feels great now is able to play basketball with his friends. He has no weakness. No true radiculopathy no myelopathy no bowel or bladder change. On examination today he is ambulating around the room without difficulty. Able to heel walk toe walk duck walk and jump without difficulty and excellent strength. Forward bend is great. Tenderness midline about the L4-5 region. Radiographs are reviewed which show no change in the amount of spondylolisthesis. Plan: We have reviewed in detail overall findings and expectations. We have discussed the likelihood of returning to an activity like football and concerns associated with this. We have discussed the possibility of operative intervention for this. We have discussed the possibility of an MRI. We have discussed the importance of core stretching and strengthening. We will reassess with new x-ray in 4 months time and I would add a flexion and extension x-ray. Yunior Quiñones MD Referring Provider: YUNIOR QUIÑONES [[id number]] Allergies As of Date: 04/27/2019 (No Known Allergies) Date Reviewed: 04/27/2019 Reviewed by: Iesha Vidal Ma - Fully Assessed Reason for Visit: Established Patient [175] Cmt: follow up back fracture Primary Visit Diagnosis:Spondylolis thesis at L4-L5 level [M43.16] Other Visit Diagnosis:Acute bilateral low back pain without sciatica [M54.5] Order(s):XR LUMBAR GENERAL 3V AP/LAT/L5-S1 [[id number]] Order #: [id number] FUTURE Prescriptions as of 04/27/2019 Sig: IBUPROFEN 600 MG TABLET Take 600 mg by mouth every 6 * Problem List As Of Date 04/27/2019 Noted Resolved Acute bilateral low back pain without sciatica *INVALID FOR* Disposition: Return in about 4 months (around 08/27/2019). Follow-up and Disposition History Recorded Letter Text Encounter Status:Closed by YUNIOR QUIÑONES MD on 04/27/19 [facility] PROGRESSon 04-27-2019 PROGRESS HNO ID: [id number] Author: Yunior Quiñones Service: ? Author Type: Physician Type: Progress Notes Filed: 04/27/2019 9:58 AM Note Text: Jesus is 13 years of age and is here in follow-up with an L4 L5 spondylolisthesis. On the first a football he went to hit into a sled and he felt pain in his back and and pain shooting down the posterior aspect of the left leg which went to the knee. He had some tingling in the hamstring area. This persisted. He has discontinued football. He was seen in the emergency department had x-rays and a CT scan. No change identified at that point. Subsequently the tingling and pain have gone away. He feels great now is able to play basketball with his friends. He has no weakness. No true radiculopathy no myelopathy no bowel or bladder change. On examination today he is ambulating around the room without difficulty. Able to heel walk toe walk duck walk and jump without difficulty and excellent strength. Forward bend is great. Tenderness midline about the L4-5 region. Radiographs are reviewed which show no change in the amount of spondylolisthesis. Plan: We have reviewed in detail overall findings and expectations. We have discussed the likelihood of returning to an activity like football and concerns associated with this. We have discussed the possibility of operative intervention for this. We have discussed the possibility of an MRI. We have discussed the importance of core stretching and strengthening. We will reassess with new x-ray in 4 months time and I would add a flexion and extension x-ray. Yunior Quiñones MD Normal [facility] PROGRESS HNO ID: [id number] Author: Linda Drake Service: ? Author Type: ? Type: Progress Notes Filed: 04/27/2019 9:08 AM Note Text: Radiology Service Progress Note PATIENT NAME: Ernesto Price DATE OF SERVICE: April 27, 2019 TIME: 9:07 AM PATIENT IDENTITY VERIFICATION COMPLETED USING TWO (2) METHODS: Name and Date of confirmed by patient verbally. PATIENT GENDER DATA: Male PATIENT RELEVANT IMPLANT DATA REVIEWED: Not Applicable RADIOLOGY DEPARTMENT: General X-ray: Exam(s) Completed: Spine X-Ray(s): Lumbar AP / LAT / L5-S1 PERIPHERAL IV DATA: Not applicable SIGNED BY: Linda Villegas Rt April 27, 2019 9:07 AM Normal [facility] XR LUMBAR 3V AP/LAT/L5-S1on 04-27-2019 XR LUMBAR 3V AP/LAT/L5-S1 * * *Final Report* * * DATE OF EXAM: Apr 27 2019 9:06AM CCX [id number] - XR LUMBAR 3V AP/LAT/L5-S1 / PROCEDURE REASON: multiple diagnoses * * * * Physician Interpretation * * * * TECHNIQUE: XR LUMBAR 3V AP/LAT/L5-S1 HISTORY: 13 years Male Spondylolisthesis at L4-L5 level Acute bilateral low back pain without sciatica COMPARISON: 11/24/18 RESULT: Counting reference: Lumbosacral junction. For the purposes of this report, L4-5 is considered the level of the iliac crest and assume there are 5 lumbar-type vertebrae. Anatomic variant: None. There is exaggerated lumbar lordosis and mild levocurvature of the lumbar spine, unchanged. Redemonstration of grade 1 anterolistheses of L4 over L5 with L4 pars defect, unchanged in appearance and degree of slippage when compared to prior study from 11/24/18. There is relative narrowing of L4-5 disc space with degenerative changes of the superior endplate of L5. Other vertebral bodies and intervertebral disc spaces are normal. The sacroiliac joints are normal. IMPRESSION: Grade 1 anterolisthesis of L4-5, unchanged. Mild narrowing of L4-5 disc space with degenerative changes of the superior endplate of L5. Dress Operator: PSCB Transcribe Date/Time: Apr 27 2019 9:14A Dictated by : HALIMA TUTTLE MD This examination was interpreted and the report reviewed and electronically signed by: HALIMA TUTTLE MD on Apr 27 2019 9:17AM EST [id number] N Normal [facility] CNOVon 11-24-2018 CNOV Office Visit (ABDIRAHMAN ) PATERNESTO Ponce ([id number]) 1 M Date Time Provider Department 11/24/18 9:45 AM YUNIOR QUIÑONES During your visit today, we recorded the following information about you: Weight Height 90.7 kg 1.778 m Tr Farrar MD 11/24/2018 9:49 AM Signed Follow Up Clinic Visit Orthopaedic Surgery HPI: Mr. Price is following up today for his known L4-L5 spondylolisthesis. Reports condition is much improved although he notes low back pain at least once daily. No neurologic symptoms. Denies other interim events. Physical Exam: Neurointact on exam TTP along paraspinals Tight hamstrings and paraspinals Skin intact, SILT, motor intact. CR<2s Imaging: L4-L5 spondylolisthesis <25% Assessment: L4-L5 spondylolisthesis, doing well - no progression Plan: Continue to work on core strengthening and stretching Avoid deadlift, power clean workouts, squats indefinitely Return to clinic 4-5 months with new lumbar XR to monitor for progression. He may call our office anytime if issues should arise prior. MD Yunior Osman MD 11/24/2018 9:49 AM Signed I have reviewed the history and physical obtained and documented by the resident and I personally participated in the nevarez components. I agree with the findings and plan of care, with the additions contained within my dictation. Yunior Quiñones M.D. Referring Provider: YUNIOR QUIÑONES [[id number]] Allergies As of Date: 11/24/2018 (No Known Allergies) Date Reviewed: 11/24/2018 Reviewed by: Fouzia Kahn Ma - Fully Assessed Reason for Visit: Established Patient [175] Cmt: FOLLOW UP L4 SPINAL FRACTURE Primary Visit Diagnosis:Spondylolis thesis at L4-L5 level [M43.16] Other Visit Diagnosis:Acute bilateral low back pain without sciatica [M54.5] Order(s):XR LUMBAR GENERAL 3V AP/LAT/L5-S1 [[id number]] Order #: [id number] FUTURE Prescriptions as of 11/24/2018 Sig: IBUPROFEN 600 MG TABLET Take 600 mg by mouth every 6 * Problem List As Of Date 11/24/2018 Noted Resolved Acute bilateral low back pain without sciatica *INVALID FOR* Follow-up and Disposition History Recorded Letter Text Letter Text Encounter Status:Closed by YUNIOR QUIÑONES MD on 11/24/18 [facility] PROGRESSon 11-24-2018 PROGRESS HNO ID: [id number] Author: Yunior Quiñones Service: ? Author Type: Physician Type: Progress Notes Filed: 11/24/2018 9:49 AM Note Text: I have reviewed the history and physical obtained and documented by the resident and I personally participated in the nevarez components. I agree with the findings and plan of care, with the additions contained within my dictation. Yunior Quiñones M.D. [facility] PROGRESS HNO ID: [id number] Author: Tr Farrar Service: ? Author Type: Resident Type: Progress Notes Filed: 11/24/2018 9:49 AM Note Text: Follow Up Clinic Visit Orthopaedic Surgery HPI: Mr. Price is following up today for his known L4-L5 spondylolisthesis. Reports condition is much improved although he notes low back pain at least once daily. No neurologic symptoms. Denies other interim events. Physical Exam: Neurointact on exam TTP along paraspinals Tight hamstrings and paraspinals Skin intact, SILT, motor intact. CR<2s Imaging: L4-L5 spondylolisthesis <25% Assessment: L4-L5 spondylolisthesis, doing well - no progression Plan: Continue to work on core strengthening and stretching Avoid deadlift, power clean workouts, squats indefinitely Return to clinic 4-5 months with new lumbar XR to monitor for progression. He may call our office anytime if issues should arise prior. Tr Farrar MD Normal [facility] PROGRESS HNO ID: [id number] Author: Suleiman Luu Rrt Service: ? Author Type: ? Type: Progress Notes Filed: 11/24/2018 9:05 AM Note Text: Radiology Service Progress Note PATIENT NAME: Ernesto Price DATE OF SERVICE: November 24, 2018 TIME: 9:05 AM PATIENT IDENTITY VERIFICATION COMPLETED USING TWO (2) METHODS: Patient confirmed name verbally and ID band matches.. PATIENT GENDER DATA: Male PATIENT RELEVANT IMPLANT DATA REVIEWED: Yes RADIOLOGY DEPARTMENT: General X-ray: Exam(s) Completed: Spine X-Ray(s): Lumbar AP / LAT / L5-S1 PERIPHERAL IV DATA: Not applicable SIGNED BY: Suleiman Luu Rrt November 24, 2018 9:05 AM Normal [facility] XR LUMBAR 3V AP/LAT/L5-S1on 11-24-2018 XR LUMBAR 3V AP/LAT/L5-S1 * * *Final Report* * * DATE OF EXAM: Nov 24 2018 9:04AM CCX [id number] - XR LUMBAR 3V AP/LAT/L5-S1 / PROCEDURE REASON: Spondylolisthesis at L4-L5 level * * * * Physician Interpretation * * * * Examination: XR LUMBAR 3V AP/LAT/L5-S1 HISTORY: FOLLOW UP FRACTURE L-4 AND L-5 Spondylolisthesis at L4-L5 level . TECHNIQUE: XR LUMBAR 3V AP/LAT/L5-S1 Laterality: NOT APPLICABLE Number of different views (projections): 3 M: XB_1 COMPARISON: Scoliosis x-ray 05/17/2017 RESULT: Counting Reference: Lumbosacral junction. For the purposes of this report, the most caudal normal disc space in the lumbar region will be labeled as L5-S1. The iliac crest will serve as a secondary landmark to identify the L4-5 level. Grade 1 anterolisthesis of L4 over L5 with associated mild disc space narrowing and degenerative changes, overall unchanged. There is associated pars defect at L4. Mildly exaggerated lumbar lordosis, unchanged to mildly progressed. Vertebral bodies demonstrate normal height and contour. IMPRESSION: Stable lumbar spine film. Dress Operator: PSCB Transcribe Date/Time: Nov 24 2018 9:31A Dictated by : ERAN DE LA TORRE MD This examination was interpreted and the report reviewed and electronically signed by: SHIV TANNER MD on Nov 24 2018 10:35AM EST [id number] N Normal [facility] Encounters Encounter Date Encounter Type Care Provider Facility Start: 10-31-2024 End: 10-31-2024 ambulatory [facility] Start: 01-30-2024 End: 01-30-2024 ambulatory [facility] Start: 07-05-2023 End: 07-05-2023 ambulatory None Provider Facility:[facility] Start: 03-25-2022 End: 03-25-2022 ambulatory [facility] C[facility] Facility:[facility] Start: 03-03-2022 End: 03-03-[address] AMY AVENDANO Facility[facility] Start: 12-23-2021 End: 12-23-2021 ambulatory LAURY CHAPO Facility:[facility] Start: 12-15-2021 End: 12-15-2021 ambulatory LAURY CHAPO Facility:[facility] Start: 12-14-2021 End: 12-15-2021 ambulatory LAURY CHAPO Facility:[facility] Start: 09-02-2021 End: 09-02-2021 ambulatory LAURY CHAPO Facility:[facility] Start: 06-29-2021 End: 06-30-2021 ambulatory LAURY CHAPO Facility:[facility] Start: 06-22-2021 End: 06-22-2021 ambulatory LAURY CHAPO Facility:[facility] Payers Date Payer Category Payer Self-pay 2003 Unknown [id number] 2.16.84 [id number] 2003 Unknown [id number] 2.16.84 [id number] 2003 Unknown [id number] 2.16.84 [id number] 2003 Unknown [id number] 2.16.84 [id number] 2003 Unknown [id number] 2.16.84 [id number] 2003 Unknown [id number] 2.16.8 [id number] 1975 Unknown [id number] 2.16.84 [id number] 1975 Unknown [id number] 2.16.84 [id number] 1975 Unknown [id number] 2.16.84 [id number] 1959 Unknown [id number] Unknown Clinical Note 07-05-2023 Note Date & Type Note Facility 07-05-2023 Note Patient Education Ma terials Follows: Sutured Wound Care Sutures are stitches that can be used to close wounds. Sutures come in different materials. They may break down as your wound heals (absorbable), or they may need to be removed (nonabsorbable). Taking care of your wound properly can help to prevent pain and infection. It can also help your wound heal more quickly. Follow instructions from your health care provider about how to care for your sutured wound. Supplies needed: ? Soap and water. ? A clean, dry towel. ? Wound cleanser or saline, if needed. ? A clean gauze or bandage (dressing), if needed. ? Antibiotic ointment, if told by your health care provider. How to care for your sutured wound ? Keep the wound completely dry for the first 24 hours, or for as long as told by your health care provider. After 24?48 hours, you may shower or bathe as told by your health care provider. Do not soak or submerge the wound in water until the sutures have been removed. ? After the first 24 hours, clean the wound once a day, or as often as told by your health care provider. Use the following steps: ? Wash and rinse the wound as told by your health care provider. ? Pat the wound dry with a clean towel. Do not rub the wound. ? After cleaning the wound, apply a thin layer of antibiotic ointment as told by your health care provider. This will prevent infection and keep the dressing from sticking to the wound. ? Follow instructions from your health care provider about how to change your dressing. Make sure you: ? Wash your hands with soap and water for at least 20 seconds before and after you change your dressing. If soap and water are not available, use hand college or university business manager. ? Change your dressing at least once a day, or as often as told by your health care provider. If your dressing gets wet or dirty, change it. ? Leave sutures and other skin closures, such as adhesive strips or skin glue, in place. These skin closures may need to stay in place for 2 weeks or longer. If adhesive strip edges start to loosen and curl up, you may trim the loose edges. Do not remove adhesive strips completely unless your health care provider tells you to do that. ? Check your wound every day for signs of infection. Watch for: ? Redness, swelling, or pain. ? Fluid or blood. ? New warmth, a rash, or hardness at the wound site. ? Pus or a bad smell. ? Have the sutures removed as told by your health care provider. Follow these instructions at home: Medicines ? Take or apply [id number] and prescription medicines only as told by your health care provider. ? If you were prescribed an antibiotic medicine or ointment, take or apply it as told by your health care provider. Do not stop using the antibiotic even if your condition improves. General instructions ? To help reduce scarring after your wound heals, cover your wound with clothing or apply sunscreen of at least 30 SPF whenever you are outside. ? Do not scratch or pick at your wound. ? Avoid stretching your wound. ? Raise (elevate) the injured area above the level of your heart while you are sitting or lying down, if possible. ? Eat a diet that includes protein, vitamin A, and vitamin C to help the wound heal. ? Drink enough fluid to keep your urine pale yellow. ? Keep all follow-up visits. This is important. Contact a health care provider if: ? You received a tetanus shot and you have swelling, severe pain, redness, or bleeding at the injection site. ? Your wound breaks open or you notice something coming out if it, such as wood or glass. ? You have any of these signs of infection: ? Redness, swelling, or pain around your wound. ? Fluid or blood coming from your wound. ? New warmth, a rash, or hardness around the wound. ? A fever. ? The skin near your wound changes color. ? You have pain that does not get better with medicine. ? You develop numbness around the wound. Get help right away if: ? You develop severe swelling or more pain around your wound. ? You have pus or a bad smell coming from your wound. ? You develop painful lumps near your wound or anywhere on your body. ? You have a red streak spreading out from your wound. ? The wound is on your hand or foot and: ? Your fingers or toes look pale or bluish. ? You cannot properly move a finger or toe. ? You have numbness that is spreading down your hand, foot, fingers, or toes. Summary ? Sutures are stitches that can be used to close wounds. ? Taking care of your wound properly can help to prevent pain and infection. ? Keep the wound completely dry for the first 24 hours, or for as long as told by your health care provider. After 24?48 hours, you may shower or bathe as told by your health care provider. ? To help with healing, eat foods that are rich in protein, vitamin A, and vitamin C. This information is not intended to replace advice given to you by your health care provider. (more content not included)... [facility] Summary Purpose Family History No Family History Records FoundNo Family History Records FoundNo Family History Records FoundNo Family History Records FoundNo Family History Records FoundNo Family History Records Found Advance Directives No Advanced Directives Records FoundNo Advanced Directives Records FoundNo Advanced Directives Records FoundNo Advanced Directives Records FoundNo Advanced Directives Records FoundNo Advanced Directives Records Found Additional Source Comments (unrecognized sect ion and content) No Status Records FoundNo Status Records FoundNo Status Records FoundNo Status Records FoundNo Status Records FoundNo Status Records Found INFORMATION SOURCE (unrecogn ized section and content) DATE CREATED AUTHOR 06/03/2019 [facility] DATE CREATED AUTHOR AUTHOR'S ORGANIZ ATION 09/28/2021 [facility] DATE CREATED AUTHOR AUTHOR'S ORGANIZ ATION 03/27/2022 [facility] DATE CREATED AUTHOR AUTHOR'S ORGANIZ ATION 04/16/2022 [facility] dical Specialist DATE CREATED AUTHOR AUTHOR'S ORGANIZ ATION 07/12/2023 [facility] DATE CREATED AUTHOR AUTHOR'S ORGANIZ ATION 11/03/2024 [facility] FOR RECORDS PERTAINING TO PATIENTS WHO ARE OR HAVE BEEN ENROLLED IN A CHEMICAL DEPENDENCY/SUBSTANCEABUSE PROGRAM, SOME INFORMATION MAY BE OMITTED. This clinical summary was aggregated from multiple sources. Caution should be exercised in using it in the provision of clinical care. This summary normalizes information from multiple sources, and as a consequence, information in this document may materially change the coding, format and clinical context of patient data. In addition, data may be omitted in some cases. CLINICAL DECISIONS SHOULD BE BASED ON THE PRIMARY CLINICAL RECORDS. [employer] provides no warranty or guarantee of the accuracy or completeness of information in this document.
[2025-02-19] MEDS: IBUPROFEN 600 MG TABLET PO (20:43)
== END 2025-02-19 22:09 | disposition home or self-care (01) ==
PROVIDERS: Emergency Provider Emergency Medicine; PCP Nurse Practitioner Family
DX: S99.912A Unspecified injury of left ankle, initial encounter (principal); W22.8XXA Striking against or struck by other objects, initial encounter
CPT/HCPCS: 73610; 99283